=== PATIENT | male | born 1950 | race Caucasian/White ===

== ENCOUNTER 2018-03-31 14:09 | Emergency (ER) | payer OTHER, MEDICARE ==
[~2018-03-31] VITALS: Ht 172.7 cm; Wt 66.7 kg
[2018-03-31 14:14] VITALS: BP 188/83; PULSE 94; RESP 16; TEMP 99.2; O2SAT 92
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
== END 2018-03-31 16:00 | disposition home or self-care (01) ==
LOC: PHED 14:09 → PHEFT 16:00
DX: S16.1XXA Strain of muscle, fascia and tendon at neck level, initial encounter (principal); M50.322 Other cervical disc degeneration at C5-C6 level; V43.62XA Car passenger injured in collision with other type car in traffic accident, initial encounter
CPT/HCPCS: 72125; 99283